=== PATIENT | female | born 1960 | race Caucasian/White ===

== ENCOUNTER 2021-01-01 07:23 | Day surgery (SDC) | payer BC ==
[~2021-01-01] VITALS: Ht 157.5 cm; Wt 68.9 kg
[2021-01-01] MEDS ORDERED: METOPROLOL SUCC25 MG PO (07:39)
[2021-01-01] MEDS ORDERED: LEVOTHYROXINE13 MCG PO (07:39)
[2021-01-01] MEDS ORDERED: VENTOLIN HFA18 GM (07:39)
--- NOTE | 2021-01-01 08:37 | NUR ---
01/01/21 0837 Martha Ladd 0834- PT TO PACU IN LL POSITION. EYES CLOSED. OPENS EYES TO VERBAL COMMANDS. DENIES PAIN. BREATHING EASY AND UNLABORED. SPO2 >95% ON 3 L O2 VIA NC. PT ENCOURAGED TO PASS GAS.
--- NOTE | 2021-01-01 09:43 | NUR ---
0934: PT RETURNS TO UNIT FROM PACU VIA STRETCHER FOR EXTENDED RECOVERY. ALERT AND ORIENTED ON ARRIVAL, ANSWERS QUESTIONS APPROPRIATELY. PT WITH MILD NAUSEA, RECEIVING SECOND LITER OF LR AT THIS TIME. ABD SOFT, PT ENCD TO PASS GAS. NOTIFIED AND ARRIVES AT THE BEDSIDE. VSS, RESP EVEN AND UNLABORED. NO NEEDS VOICED AT THIS TIME. CALL LIGHT WITHIN REACH
--- NOTE | 2021-01-01 10:49 | NUR ---
1025: PT WITH CALL FOR THIS RN. DRESSED AND STATES "I FEEL GREAT AND I AM READY TO GO!". VSS, RESP EVEN AND UNLABORED. DENIES ANY PERSISTING NAUSEA AT THIS TIME. IV DISCONNECTED AND REMOVED WITH CATH TIP INTACT, PRESSURE APPLIED TO SITE. WNL. D/C INSTRUCTIONS PREVIOUSLY DISCUSSED AND PT STATES SHE HAS NO QUESTIONS OR CONCERNS AT THIS TIME. 1030: WHEELED OFF OF UNIT FOR D/C IN WC BY THIS RN. TRANSFERS TO VEHICLE INDEPENDENTLY. NO PHYSICAL S/S OF DISTRESS AT THIS TIME.
--- NOTE | 2021-01-02 08:55 | OR ---
[facility] [address] [place], [place] [address] Signed DATE OF OPERATION: 01/01/2021 SURGEON: Raúl Guzmán MD PREOPERATIVE DIAGNOSIS: Colon screening. POSTOPERATIVE DIAGNOSIS: Normal colon to cecum. PROCEDURE: Total colonoscopy to cecum. ANESTHESIA: Intravenous sedation, fentanyl 150 mcg and Versed 4 mg total. INDICATION: This 60-year-old white woman is a patient of JOSSELYN Roberts and has been referred for screening colonoscopy. She has never had colonoscopy in the past or other colonic evaluation. She has no symptoms of bleeding, diarrhea, or constipation and has no family history of colon cancer that she is aware of. She is admitted to undergo screening colonoscopy. She understands the risk of bleeding, infection, and perforation. FINDINGS: The prep was excellent. Complete colonoscopy was undertaken to the cecum without question. There was no evidence of polyps, diverticular formation, colitis, or cancer. DESCRIPTION OF PROCEDURE: The patient was brought to the endoscopy suite and placed in the lateral decubitus position, given intravenous sedation to the point of slurred speech and nystagmus. Digital rectal examination was normal. An Olympus video colonoscope was passed in the rectum and manipulated throughout the colon ultimately intubating the cecum itself. The ileocecal valve and appendiceal orifice were normal. She did have some bradycardia into about 49 beats per minute, which allowed for pause and proper resumption of normal sinus rhythm without bradycardia. The scope was withdrawn from the cecum and examination throughout showed no sign of abnormality, specifically no polyps, diverticular formation, or cancer. Retroflex view was normal as well. The scope was removed and the patient was taken to Electronically Signed By: RAÚL GUZMÁN MD 01/02/21 0855 PATIENT NAME: JERRI GARNER OPERATIVE REPORT DATE OF : 60 REPORT #: [id number] PHYSICIAN: RAÚL GUZMÁN MD PCP: JESSICA DUNLAP REPORT IS CONFIDENTIAL AND NOT TO BE RELEASED WITHOUT AUTHORIZATION [facility] [address] [place] [address] [place], [place] [address] Signed the recovery room in good condition. CONCLUDING DIAGNOSIS: Normal colon. PLAN: Recommend repeat colonoscopy in 10 years, sooner if clinically indicated. She will return to the ongoing care of JOSSELYN Roberts. MD FIDELIA Fernández/MIESHAL /[id number] cc: JOSSELYN Roberts Copies: JESSICA DUNLAP ~ Electronically Signed By: RAÚL GUZMÁN MD 01/02/21 0855 PATIENT NAME: JERRI GARNER OPERATIVE REPORT DATE OF : 60 REPORT #: [id number] PHYSICIAN: RAÚL GUZMÁN MD PCP: JESSICA DUNLAP REPORT IS CONFIDENTIAL AND NOT TO BE RELEASED WITHOUT AUTHORIZATION
== END 2021-01-01 10:30 | disposition home or self-care (01) ==
LOC: DS 07:23 → OPS 07:23 → DS 08:30 → OPS 10:30
PROVIDERS: ATTEND Surgery
PROC: 0DJD8ZZ Inspection of Lower Intestinal Tract, Via Natural or Artificial Opening Endoscopic (ICD-10-PCS; principal; 2021-01-01 08:30)
DX: Z12.11 Encounter for screening for malignant neoplasm of colon (principal); I10 Essential (primary) hypertension; E03.9 Hypothyroidism, unspecified; Z78.0 Asymptomatic menopausal state; R00.1 Bradycardia, unspecified
CPT/HCPCS: 99153; G0500; J2250; J3010; J7121

== ENCOUNTER 2024-03-01 01:27 | Emergency (ER) | payer BC ==
[~2024-03-01] VITALS: Ht 157.5 cm; Wt 71.2 kg
[~2024-03-01 01:27] MED LIST: LEVOTHYROXINE13 MCG PO; METOPROLOL SUCC25 MG PO; VENTOLIN HFA18 GM
[2024-03-01] MEDS ORDERED: KETOROLAC TROMETHAMINE 15 MG/ML VIAL IV ONE (02:00)
[2024-03-01] MEDS ORDERED: ondansetron HCL 4 MG/2 ML VIAL IV ONE (02:00)
[2024-03-01] MEDS ORDERED: MORPHINE SULFATE 4 MG/ML VIAL IV ONE (02:00)
[2024-03-01] MEDS ORDERED: FAMOTIDINE 20 MG/ 2 ML VIAL IV ONE (02:00)
[2024-03-01 02:01] LABS: BASOPHILS 0.6 % (0-2); EOSINOPHILS 2.4 % (0-6); HEMATOCRIT 43.4 % (35.0-50.0); LYMPHOCYTES 40.3 % (24-44); MCH 30.6 (27-36); MCHC 34.5 g/dl (30-36); MCV 88.8 fl (81-99); MONOCYTES 8.2 % (0-12); NEUTROPHILS 48.5 % (39-80); PLATELET COUNT 341 K/uL (140-440); RBC 4.89 M/ul (4.3-5.7); RDW 12.7 (10.5-15.0)
[2024-03-01 02:02] LABS: BILIRUBIN, URINE NEGATIVE (negative); BLOOD/HGB, URINE NEGATIVE (Negative); KETONE, URINE TRACE (Negative); LEUK ESTERASE, URINE SMALL (negative); NITRITE, URINE NEGATIVE (negative)
[2024-03-01] MEDS ORDERED: SYNTHROID75 MCG PO (02:10)
[2024-03-01] MEDS ORDERED: METOPROLOL SUCC50 MG PO (02:10)
[2024-03-01 02:13] LABS: ALBUMIN 3.8 g/dL (3.4-5.0); ALBUMIN/GLOBULIN RATIO 1.12 (1.1-2.4); ANION GAP 20.2 (7-21); BILIRUBIN, TOTAL 0.6 ng/dL (0.2-1.0); BUN/CREATININE RATIO 15.83 (6.0-28.6); CALCIUM 9.5 mg/dL (8.5-10.1); CREATININE, SERUM 1.2 mg/dL (0.55-1.02); POTASSIUM 3.2 mmol/L (3.5-5.1); PROTEIN, TOTAL 7.2 g/dL (6.4-8.2)
[2024-03-01 02:14] LABS: BACTERIA, URINE RARE /hpf (negative); CRYSTALS, URINE NONE SEEN (0-1+); EPITHELIAL CELLS, URINE SQUAMOUS 1+ /lpf (0-1+); RED BLOOD CELLS, URINE 0-1 /hpf (0-5)
[2024-03-01 02:15] LABS: CASTS, URINE NONE SEEN \\lpf; COLLECTION TYPE, URINE CLEAN CATCH; REFLEX CULTURE, URINE Yes (No)
[2024-03-01] MEDS ORDERED: LACTATED RINGER'S 1,000 ML IV ONE (03:00)
[2024-03-01 03:13] LABS: LACTIC ACID, BLOOD 4.8 mmol/L (0.4-2.0)
[2024-03-01] MEDS ORDERED: SODIUM CHLORIDE 0.9% 1,000 ML IV PRN (03:30)
[2024-03-01] MEDS ORDERED: CEFTRIAXONE/SODIUM CHLORIDE 2 GM/100 ML PIGGYBACK IV ONE (03:30)
[2024-03-01] MEDS ORDERED: TAMSULOSIN HCL 0.4 MG CAP PO ONE (04:00)
[2024-03-01] MEDS ORDERED: FLOMAX0.4 MG PO (05:17)
[2024-03-01] MEDS ORDERED: MACROBID 100 M100 MG PO (05:17)
[2024-03-01] MEDS ORDERED: HYDROCODON-ACE1 EA10 PO (05:17)
[2024-03-01 05:21] LABS: LACTIC ACID, BLOOD 2.1 mmol/L (0.4-2.0)
[2024-03-01] MEDS ORDERED: HYDROCODONE BIT/ACETAMINOPHEN 5/325 MG 1 TAB HOME.PACK PO ONE (05:30)
[2024-03-01 05:55] VITALS: BP 142/68
--- NOTE | 2024-03-01 08:14 | EKG ---
[facility] [address] [facility] [place] [address] Signed Sinus bradycardia with sinus arrhythmia Nonspecific ST and T wave abnormality Abnormal ECG No previous ECGs available Confirmed by Ashli Ruff MD () on 03/01/2024 8:14:26 AM Electronically Signed By: ASHLI RUFF MD 03/01/24813 PATIENT NAME: JERRI GARNER Electrocardiogram DATE OF : 60 PHYSICIAN: ASHLI RUFF MD REPORT #: [id number] REPORT IS CONFIDENTIAL AND NOT TO BE RELEASED WITHOUT AUTHORIZATION
== END 2024-03-01 05:58 | disposition home or self-care (01) ==
LOC: ED 01:27
PROVIDERS: Internal Medicine
DX: N13.6 Pyonephrosis (principal); I10 Essential (primary) hypertension; E03.9 Hypothyroidism, unspecified; Z79.890 Hormone replacement therapy; Z79.899 Other long term (current) drug therapy
CPT/HCPCS: 36415; 74177; 80053; 81001; 83605; 83690; 84484; 85025; 87088; 93005; 93010; 96361; 96375; 99284-25; A9270; J0696; J1885; J2405; J7030; J7121; Q9967